=== PATIENT | male | born 1945 | race African-American/Black ===

== ENCOUNTER 2022-09-06 06:03 | Inpatient (IN) | payer MEDICARE ==
[2022-09-06] MEDS ORDERED: Morphine 4 MG/ML VIAL ONE (06:09)
[2022-09-06] MEDS ORDERED: Adenosine 6 MG/2 ML VIAL ONE (06:10)
[2022-09-06] MEDS ORDERED: Lidocaine 1% (PF) 30 ML VIAL ONE (06:10)
[2022-09-06] MEDS ORDERED: Heparin 10,000 UNITS/ 10 ML VIAL ONE (06:10)
[2022-09-06] MEDS ORDERED: Nitroglycerin 50 MG/250 ML BOT 250 ML ONE (06:10)
[2022-09-06] MEDS ORDERED: Sodium Chloride 0.9% 1,000 ML ONE (06:11)
[2022-09-06] MEDS ORDERED: Midazolam HCl 2 mg/2 ml Vial ONE ×2 (06:11→08:00)
[2022-09-06] MEDS ORDERED: Fentanyl 100 MCG/2 ML VIAL ONE (06:12)
[2022-09-06 06:42] LABS: #Basophils 0.1 10x3/uL (0.0-0.2); #Eosinphils 0.1 10x3/uL (0.0-0.5); #Monocytes 0.3 10x3/uL (0.0-1.1); #Neutrophils 4.5 10x3/uL (1.5-8.4); %Basophils 0.8 % (0.0-2.0); %Eosinophils 1.2 % (0.0-6.0); %Lymphocytes 16.6 % (18.0-47.0); %Monocytes 4.9 % (0.0-10.0); %Neutrophils 76.3 % (40.0-75.0); Hemoglobin 13.9 g/dL (13.5-17.5); Mean Corpuscular HGB CONC 32.9 g/dL (32.0-36.0); Mean Corpuscular Hemoglobin 27.4 pg (27.0-33.0); Mean Corpuscular Volume 83.2 fl (81.2-95.1); Mean Platelet Volume 13.9 fl (7.4-10.4); Platelet Count 132 10x3/uL (150-450); RBC Distribution Width 12.7 % (11.5-14.5); Red Blood Cell (RBC) Count 5.07 10x6/uL (4.32-5.72); White Blood Cell (WBC) Count 5.9 10x3/uL (3.5-10.5)
[2022-09-06] MEDS ORDERED: Ondansetron PF 4 MG/2 ML Vial ONE ×2 (06:43→08:00)
[2022-09-06 06:50] LABS: ALT (SGPT) 15 U/L (8-55); AST (SGOT) 16 U/L (5-34); Albumin 4.7 g/dL (3.4-4.8); Alkaline Phosphatase 71 U/L (40-110); Anion Gap 21 mmol/L (10-20); BUN (Urea Nitrogen) 21 mg/dL (8.4-25.7); Bilirubin, Total 0.6 mg/dL (0.2-1.2); CK (CPK) 117 U/L (30-200); Calc. Creatinine Clearance 0 mL/min (70-130); Calcium 9.9 mg/dL (7.8-10.44); Carbon Dioxide 19 mmol/L (23-31); Chloride 99 mmol/L (98-107); Estimated GFR 42; Globulin 3.6 g/dL (2.4-3.5); Glucose 382 mg/dL (83-110); Potassium 4.1 mmol/L (3.5-5.1); Protein, Total 8.3 g/dL (5.8-8.1); Sodium 135 mmol/L (136-145)
[2022-09-06] MEDS ORDERED: Metoprolol Tartrate 5 MG/5 ML VIAL ONE (08:00)
[2022-09-06] MEDS ORDERED: TICAGRELOR 90 MG TABLET ONE (08:16)
[2022-09-06 09:05] VITALS: BMI 31.4
[2022-09-06] MEDS ORDERED: Acetaminophen 325 MG TAB PO PRN (10:40)
[2022-09-06] MEDS ORDERED: Sodium Chloride 0.9% 200 ML IV PRN (10:40)
[2022-09-06] MEDS ORDERED: Nitroglycerin 0.4 MG TAB (25 Tab Bottle) SL PRN (10:40)
[2022-09-06 10:41] LABS: SARS-CoV-2 NAA Rapid Test Not Detected (NotDetected)
[2022-09-06] MEDS ORDERED: Amlodipine 5 MG TAB PO SCH ×2 (11:00→15:30)
[2022-09-06] MEDS ORDERED: Sodium Chloride 0.9% 1,000 ML IV SCH (11:00)
[2022-09-06] MEDS ORDERED: Ondansetron ODT 4 MG TAB PO PRN (11:18)
[2022-09-06] MEDS ORDERED: Cepastat Lozenges 1 LOZ PO PRN (11:18)
[2022-09-06] MEDS ORDERED: Loperamide HCl 2 MG CAP PO PRN (11:18)
[2022-09-06] MEDS ORDERED: Moisturizing Cream (Eucerin) 113 GM JAR TOP PRN (11:18)
[2022-09-06] MEDS ORDERED: Artificial Tear Sol 15 ML BOT EA EYE PRN (11:18)
[2022-09-06] MEDS ORDERED: Senokot S 8.6-50 MG TAB PO PRN (11:18)
[2022-09-06] MEDS ORDERED: Calcium Carbonate 500 MG ChewTAB PO PRN (11:18)
[2022-09-06] MEDS ORDERED: Iopamidol 300 61% 100 ML VIAL FS ONE (11:25)
[2022-09-06] MEDS ORDERED: Nitroglycerin 2% Ointment 1 INCH/1 GM Packet TOP SCH (11:30)
[2022-09-06 11:43] LABS: Cardiac Risk 4.9 (Less than 4.5)
[2022-09-06] MEDS ORDERED: Morphine 2 MG/ML VIAL SLOW IVP SCH (12:00)
[2022-09-06] MEDS ORDERED: Dextrose 50% Abboject 50 ML SYRINGE IVP PRN (12:00)
[2022-09-06] MEDS ORDERED: Dextrose 5% in Water 1,000 ML IV PRN (12:00)
[2022-09-06] MEDS: HumaLOG 300 UNITS/3 ML VIAL SC PRN ×3 (12:19→23:35)
[2022-09-06 14:19] LABS: Hemoglobin A1c 8.5 % (4.0-6.0)
[2022-09-06] MEDS ORDERED: Metoprolol Tartrate 50 MG TAB PO SCH (15:45)
[2022-09-06] MEDS: Nitroglycerin 2% Ointment 1 INCH/1 GM Packet TOP SCH ×2 (17:58→23:36)
[2022-09-06] MEDS ORDERED: hydrALAZINE 20 MG/ML VIAL SLOW IVP SCH (18:00)
[2022-09-06] MEDS ORDERED: Atorvastatin Calcium 40 MG TAB PO SCH (21:00)
[2022-09-06] MEDS ORDERED: Promethazine HCl 12.5 MG in Sodium Chloride 0.9% 50 ML IVPB SCH (21:15)
[2022-09-06] MEDS: TICAGRELOR 90 MG TABLET PO SCH (21:48)
[2022-09-06] MEDS: Atorvastatin Calcium 40 MG TAB PO SCH (21:48)
[2022-09-06] MEDS: Metoprolol Tartrate 50 MG TAB PO SCH (21:48)
[2022-09-07] MEDS: hydrALAZINE 25 MG TAB PO SCH ×4 (01:21→21:30)
[2022-09-07] MEDS ORDERED: Aspirin Chewable 81 MG TAB PO SCH ×2 (06:00→09:00)
[2022-09-07] MEDS ORDERED: Amlodipine 10 MG TAB PO SCH ×2 (06:00→09:00)
[2022-09-07] MEDS: Nitroglycerin 2% Ointment 1 INCH/1 GM Packet TOP SCH ×3 (06:05→18:00)
[2022-09-07] MEDS: Metoprolol Tartrate 50 MG TAB PO SCH ×2 (06:05→21:30)
[2022-09-07] MEDS: TICAGRELOR 90 MG TABLET PO SCH ×2 (06:06→21:01)
[2022-09-07 07:24] LABS: Anion Gap 13 mmol/L (10-20); BUN (Urea Nitrogen) 20 mg/dL (8.4-25.7); Calc. Creatinine Clearance 64 mL/min (70-130); Calcium 9.5 mg/dL (7.8-10.44); Carbon Dioxide 23 mmol/L (23-31); Chloride 105 mmol/L (98-107); Estimated GFR 53; Glucose 196 mg/dL (83-110); Potassium 4.1 mmol/L (3.5-5.1); Sodium 137 mmol/L (136-145)
[2022-09-07 07:46] LABS: Hemoglobin 14.3 g/dL (13.5-17.5); Mean Corpuscular Hemoglobin 27.8 pg (27.0-33.0); Mean Corpuscular Volume 81.9 fl (81.2-95.1); Mean Platelet Volume 13.8 fl (7.4-10.4); Platelet Count 158 10x3/uL (150-450); RBC Distribution Width 12.7 % (11.5-14.5); Red Blood Cell (RBC) Count 5.14 10x6/uL (4.32-5.72); White Blood Cell (WBC) Count 7.8 10x3/uL (3.5-10.5)
[2022-09-07] MEDS ORDERED: Heparin 10,000 UNITS/ 10 ML VIAL ONE (08:04)
[2022-09-07] MEDS ORDERED: Lidocaine 1% (PF) 30 ML VIAL ONE (08:04)
[2022-09-07] MEDS ORDERED: Nitroglycerin 50 MG/250 ML BOT 250 ML ONE (08:04)
[2022-09-07] MEDS ORDERED: Atropine Sulfate 0.4 mg/1 ml Vial ONE (08:05)
[2022-09-07] MEDS ORDERED: Midazolam HCl 2 mg/2 ml Vial ONE (11:27)
[2022-09-07] MEDS ORDERED: Fentanyl 100 MCG/2 ML VIAL ONE (11:27)
[2022-09-07] MEDS ORDERED: Ondansetron PF 4 MG/2 ML Vial ONE (11:46)
[2022-09-07] MEDS ORDERED: Iopamidol 300 61% 100 ML VIAL FS ONE (11:47)
[2022-09-07] MEDS ORDERED: Sodium Chloride 0.9% 1,000 ML IV SCH (13:00)
[2022-09-07] MEDS ORDERED: Empagliflozin 10 MG TAB PO SCH (13:15)
[2022-09-07] MEDS ORDERED: Glimepiride 2 MG TAB PO SCH (13:30)
[2022-09-07] MEDS: HumaLOG 300 UNITS/3 ML VIAL SC PRN (17:00)
[2022-09-07] MEDS: Losartan 25 MG TAB PO SCH (17:59)
[2022-09-07] MEDS: Atorvastatin Calcium 40 MG TAB PO SCH (20:59)
[2022-09-07] MEDS: DOPamine 400 MG/D5W 250 ML 250 ML IVPB SCH (21:27)
[2022-09-07] MEDS ORDERED: Midodrine HCl 2.5 MG TAB PO SCH (21:30)
[2022-09-08] MEDS: HumaLOG 300 UNITS/3 ML VIAL SC PRN ×2 (00:56→17:53)
[2022-09-08 04:14] LABS: #Eosinphils 0.2 10x3/uL (0.0-0.5); #Monocytes 0.7 10x3/uL (0.0-1.1); %Basophils 0.6 % (0.0-2.0); %Eosinophils 2.3 % (0.0-6.0); %Lymphocytes 16.3 % (18.0-47.0); %Monocytes 9.6 % (0.0-10.0); %Neutrophils 70.9 % (40.0-75.0); Hemoglobin 12.8 g/dL (13.5-17.5); Mean Corpuscular HGB CONC 34.1 g/dL (32.0-36.0); Mean Corpuscular Hemoglobin 27.9 pg (27.0-33.0); Mean Corpuscular Volume 81.7 fl (81.2-95.1); Mean Platelet Volume 12.9 fl (7.4-10.4); Platelet Count 129 10x3/uL (150-450); RBC Distribution Width 12.7 % (11.5-14.5); Red Blood Cell (RBC) Count 4.59 10x6/uL (4.32-5.72); White Blood Cell (WBC) Count 7.1 10x3/uL (3.5-10.5)
[2022-09-08 04:30] LABS: ALT (SGPT) 46 U/L (8-55); AST (SGOT) 92 U/L (5-34); Albumin 3.4 g/dL (3.4-4.8); Alkaline Phosphatase 54 U/L (40-110); Anion Gap 16 mmol/L (10-20); BUN (Urea Nitrogen) 31 mg/dL (8.4-25.7); Bilirubin, Total 0.6 mg/dL (0.2-1.2); Calc. Creatinine Clearance 42 mL/min (70-130); Calcium 8.5 mg/dL (7.8-10.44); Carbon Dioxide 18 mmol/L (23-31); Chloride 104 mmol/L (98-107); Estimated GFR 32; Globulin 2.9 g/dL (2.4-3.5); Glucose 234 mg/dL (83-110); Potassium 3.8 mmol/L (3.5-5.1); Protein, Total 6.3 g/dL (5.8-8.1); Sodium 134 mmol/L (136-145)
[2022-09-08] MEDS: DOPamine 400 MG/D5W 250 ML 250 ML IVPB SCH (07:42)
[2022-09-08] MEDS: TICAGRELOR 90 MG TABLET PO SCH ×2 (08:10→20:21)
[2022-09-08] MEDS: Metoprolol Tartrate 50 MG TAB PO SCH ×2 (08:11→20:20)
[2022-09-08] MEDS: Empagliflozin 10 MG TAB PO SCH (08:11)
[2022-09-08] MEDS: Glimepiride 2 MG TAB PO SCH (08:11)
[2022-09-08] MEDS: Aspirin Chewable 81 MG TAB PO SCH (08:11)
[2022-09-08] MEDS ORDERED: Amlodipine 10 MG TAB PO SCH (09:00)
[2022-09-08] MEDS: Losartan 25 MG TAB PO SCH (18:34)
[2022-09-08] MEDS: Atorvastatin Calcium 40 MG TAB PO SCH (20:20)
[2022-09-09] MEDS: HumaLOG 300 UNITS/3 ML VIAL SC PRN ×2 (00:01→05:42)
[2022-09-09 04:02] LABS: ALT (SGPT) 34 U/L (8-55); AST (SGOT) 57 U/L (5-34); Albumin 3.5 g/dL (3.4-4.8); Alkaline Phosphatase 54 U/L (40-110); Anion Gap 16 mmol/L (10-20); BUN (Urea Nitrogen) 28 mg/dL (8.4-25.7); Bilirubin, Total 0.5 mg/dL (0.2-1.2); Calc. Creatinine Clearance 50 mL/min (70-130); Calcium 8.8 mg/dL (7.8-10.44); Carbon Dioxide 19 mmol/L (23-31); Chloride 106 mmol/L (98-107); Estimated GFR 36; Globulin 3.2 g/dL (2.4-3.5); Glucose 302 mg/dL (83-110); Potassium 4.5 mmol/L (3.5-5.1); Protein, Total 6.7 g/dL (5.8-8.1); Sodium 136 mmol/L (136-145)
[2022-09-09 04:02] LABS: #Eosinphils 0.3 10x3/uL (0.0-0.5); #Monocytes 0.5 10x3/uL (0.0-1.1); #Neutrophils 3.4 10x3/uL (1.5-8.4); %Basophils 0.4 % (0.0-2.0); %Eosinophils 5.3 % (0.0-6.0); %Lymphocytes 20.6 % (18.0-47.0); %Monocytes 9.7 % (0.0-10.0); %Neutrophils 63.8 % (40.0-75.0); Hemoglobin 12.7 g/dL (13.5-17.5); Mean Corpuscular HGB CONC 33.3 g/dL (32.0-36.0); Mean Corpuscular Hemoglobin 27.7 pg (27.0-33.0); Platelet Count 117 10x3/uL (150-450); RBC Distribution Width 12.9 % (11.5-14.5); Red Blood Cell (RBC) Count 4.59 10x6/uL (4.32-5.72); White Blood Cell (WBC) Count 5.3 10x3/uL (3.5-10.5)
[2022-09-09] MEDS: Glimepiride 2 MG TAB PO SCH (07:59)
[2022-09-09] MEDS: Aspirin Chewable 81 MG TAB PO SCH (08:00)
[2022-09-09] MEDS: TICAGRELOR 90 MG TABLET PO SCH (08:00)
[2022-09-09] MEDS: Empagliflozin 10 MG TAB PO SCH (08:00)
[2022-09-09] MEDS: Metoprolol Tartrate 50 MG TAB PO SCH (08:02)
[2022-09-09 09:13] VITALS: BP 108/65; TEMP 98.6
== END 2022-09-09 11:20 | disposition home or self-care (01) | DRG 246 ==
LOC: CSHERS 06:03 → CSHICU 07:19
PROVIDERS: ADMIT Specialist; ATTEND Specialist
PROC: 027037Z Dilation of Coronary Artery, One Artery with Four or More Drug-eluting Intraluminal Devices, Percutaneous Approach (ICD-10-PCS; principal; 2022-09-06)
PROC: 4A023N7 Measurement of Cardiac Sampling and Pressure, Left Heart, Percutaneous Approach (ICD-10-PCS; 2022-09-06)
PROC: B2111ZZ Fluoroscopy of Multiple Coronary Arteries using Low Osmolar Contrast (ICD-10-PCS; 2022-09-06)
PROC: B2151ZZ Fluoroscopy of Left Heart using Low Osmolar Contrast (ICD-10-PCS; 2022-09-06)
PROC: B240ZZ3 Ultrasonography of Single Coronary Artery, Intravascular (ICD-10-PCS; 2022-09-06)
PROC: 027036Z Dilation of Coronary Artery, One Artery with Three Drug-eluting Intraluminal Devices, Percutaneous Approach (ICD-10-PCS; 2022-09-07)
PROC: 4A023N6 Measurement of Cardiac Sampling and Pressure, Right Heart, Percutaneous Approach (ICD-10-PCS; 2022-09-07)
PROC: B240ZZ3 Ultrasonography of Single Coronary Artery, Intravascular (ICD-10-PCS; 2022-09-07)
DX: I21.09 ST elevation (STEMI) myocardial infarction involving other coronary artery of anterior wall (principal); I13.0 Hypertensive heart and chronic kidney disease with heart failure and stage 1 through stage 4 chronic kidney disease, or unspecified chronic kidney disease; K21.9 Gastro-esophageal reflux disease without esophagitis; E78.5 Hyperlipidemia, unspecified; E11.22 Type 2 diabetes mellitus with diabetic chronic kidney disease; I50.9 Heart failure, unspecified; Z20.822 Contact with and (suspected) exposure to COVID-19; Z98.890 Other specified postprocedural states; Z88.5 Allergy status to narcotic agent; Z87.891 Personal history of nicotine dependence; Z79.899 Other long term (current) drug therapy
CPT/HCPCS: 36415; 36416; 71045; 80048; 80053; 80061; 82550; 82553; 83036; 84484; 85025; 85027; 85347; 85610; 85730; 86850; 86900; 86901; 92921; 92928; 92941; 92978; 92979; 93005; 93010; 93306; 93454; 93458; 94760; 96374; 96375; 97139; 99152; 99153; C1725; C1753; C1760; C1769; C1874; C1876; C1887; C9600; C9606; J0153; J0360; J0461; J1265; J1644; J1815; J2001; J2250; J2270; J2272; J2405; J2550; J3010; J7050; Q0162; Q9967; U0002

== ENCOUNTER 2024-07-09 22:41 | Observation (INO) | payer MEDICARE, OTHER ==
[2024-07-09] MEDS ORDERED: Calcium Carbonate 500 MG ChewTAB PO PRN (22:56)
[2024-07-09] MEDS ORDERED: Senokot S 8.6-50 MG TAB PO PRN (22:56)
[2024-07-09] MEDS ORDERED: Acetaminophen 325 MG TAB PO PRN (22:56)
[2024-07-09] MEDS ORDERED: Ondansetron PF 4 MG/2 ML Vial IVP PRN (22:56)
[2024-07-09] MEDS ORDERED: Morphine 2 MG/ML VIAL SLOW IVP PRN (23:00)
[2024-07-09] MEDS ORDERED: Dextrose 5% in Water 1,000 ML IV PRN (23:26)
[2024-07-09] MEDS ORDERED: Insulin Lispro 100 UNIT/ML 10 ML VIAL SC PRN ×2 (23:26)
[2024-07-09] MEDS ORDERED: Glucagon 1 MG/ML KIT IM PRN (23:26)
[2024-07-09] MEDS ORDERED: Dextrose 50% Abboject 50 ML SYRINGE SLOW IVP PRN (23:26)
[2024-07-09 23:34] VITALS: BMI 28.0
[2024-07-09] MEDS ORDERED: FLU (Fluad Triv) TS24-25 (65UP)/MF59C/PF 45 MCG/0.5 ML Syringe IM ONE (23:45)
[2024-07-10 00:23] LABS: Troponin I Less than 0.010 ng/mL (< 0.028)
[2024-07-10 04:33] LABS: Troponin I 0.021 ng/mL (< 0.028)
[2024-07-10 04:37] LABS: ALT (SGPT) Less than 7 U/L (8-55); AST (SGOT) 8 U/L (5-34); Albumin 3.5 g/dL (3.4-4.8); Alkaline Phosphatase 63 U/L (40-110); Anion Gap 15 mmol/L (10-20); BUN (Urea Nitrogen) 45 mg/dL (8.4-25.7); Bilirubin, Total 0.3 mg/dL (0.2-1.2); Calc. Creatinine Clearance 43 mL/min (70-130); Calcium 9.2 mg/dL (7.8-10.44); Carbon Dioxide 22 mmol/L (23-31); Cardiac Risk 7.9 (Less than 4.5); Chloride 105 mmol/L (98-107); Cholesterol 228 mg/dl (< 200 Desired); Estimated GFR 37; Glucose 272 mg/dL (83-110); HDL Cholesterol 29 mg/dL (>60 Neg Risk); LDL Cholesterol, Calculated 167 mg/dL; Potassium 4.3 mmol/L (3.5-5.1); Protein, Total 6.5 g/dL (5.8-8.1); Sodium 138 mmol/L (136-145); Triglycerides 161 mg/dL (Less than 150)
[2024-07-10 04:49] LABS: Mean Platelet Volume 13.9 fL (7.4-10.4); Platelet Count 111 10x3/uL (150-450)
[2024-07-10 04:50] LABS: #Basophils 0.02 10x3/uL (0.0-0.2); #Eosinophils 0.24 10x3/uL (0.0-0.5); #Monocytes 0.38 10x3/uL (0.0-1.1); #Neutrophils 1.72 10x3/uL (1.5-8.4); %Basophils 0.5 % (0.0-2.0); %Eosinophils 6.1 % (0.0-6.0); %Lymphocytes 40.4 % (18.0-47.0); %Monocytes 9.6 % (0.0-10.0); %Neutrophils 43.4 % (40.0-75.0); Hematocrit 36.8 % (38.8-50.0); Hemoglobin 12.5 g/dL (13.5-17.5); Mean Corpuscular Hemoglobin 28.5 pg (27.0-33.0); Mean Corpuscular Volume 83.8 fL (81.2-95.1); RBC Distribution Width 13.1 % (11.5-14.5); Red Blood Cell (RBC) Count 4.39 10x6/uL (4.32-5.72)
[2024-07-10] MEDS ORDERED: TICAGRELOR 90 MG TABLET PO SCH (09:00)
[2024-07-10] MEDS: Enoxaparin 40 MG (0.4 mL) SYRINGE SC SCH (09:04)
[2024-07-10] MEDS: Pantoprazole DR 40 MG TAB PO SCH (09:04)
[2024-07-10] MEDS: Sacubitril 49 MG/Valsartan 51 MG TABLET PO SCH (09:04)
[2024-07-10] MEDS: Empagliflozin 10 MG TAB PO SCH (09:04)
[2024-07-10] MEDS: Aspirin Chewable 81 MG TAB PO SCH (09:04)
[2024-07-10 11:48] VITALS: BP 102/62; TEMP 98
[2024-07-10 13:58] LABS: Troponin I Less than 0.010 ng/mL (< 0.028)
[2024-07-10 14:33] LABS: Hemoglobin A1c 8.9 % (4.0-6.0)
[2024-07-10] MEDS ORDERED: Losartan 25 MG TAB PO SCH (17:00)
[2024-07-10] MEDS ORDERED: Atorvastatin Calcium 40 MG TAB PO SCH (21:00)
== END 2024-07-10 16:15 | disposition home or self-care (01) ==
LOC: INTOOBSV 22:41 → CSHTELE 22:41
PROVIDERS: ADMIT Internal Medicine; ATTEND Nurse Practitioner Acute Care
PROC: B24BZZZ Ultrasonography of Heart with Aorta (ICD-10-PCS; principal; 2024-07-10)
DX: R07.2 Precordial pain (principal); I25.10 Atherosclerotic heart disease of native coronary artery without angina pectoris; I13.0 Hypertensive heart and chronic kidney disease with heart failure and stage 1 through stage 4 chronic kidney disease, or unspecified chronic kidney disease; I50.20 Unspecified systolic (congestive) heart failure; N18.9 Chronic kidney disease, unspecified; E11.22 Type 2 diabetes mellitus with diabetic chronic kidney disease; E78.5 Hyperlipidemia, unspecified; K21.9 Gastro-esophageal reflux disease without esophagitis; Z88.5 Allergy status to narcotic agent; Z79.82 Long term (current) use of aspirin; Z79.02 Long term (current) use of antithrombotics/antiplatelets; Z79.84 Long term (current) use of oral hypoglycemic drugs; Z79.899 Other long term (current) drug therapy
CPT/HCPCS: 80053; 80061; 82962; 83036; 84484 ×3; 85025; 93005; 93306; 94760; 94762; 96372; G0378 ×2; J1650; 36415; 36416; 93010